=== PATIENT | female | born 1980 | race Caucasian/White ===

== ENCOUNTER 2018-10-03 21:01 | Inpatient (IN) | payer BC ==
[~2018-10-03] VITALS: Ht 167.6 cm; Wt 117.9 kg
[2018-10-03] MEDS ORDERED: PREVACID 15MG15 M1 PO (21:29)
[2018-10-03] MEDS ORDERED: TOPAMAX 100MG100 M1 PO (21:29)
[2018-10-03] MEDS ORDERED: WELLBUTRIN XL300 M1 PO (21:29)
[2018-10-03] MEDS ORDERED: JUNEL 1.5 MG-31 EACH PO (21:30)
[2018-10-03] MEDS ORDERED: MOBIC 7.5MG7.5 MG PO (21:30)
[2018-10-03 21:51] LABS: BASO # 0.1 (0.0-0.2); BASO % 0.6 % (0.0-2.0); EOS # 0.1 (0.0-0.7); EOS % 1.4 % (0-4.0); GRAN # 5.5 (1.4-6.5); GRAN % 68.6 % (42.2-75.2); HEMATOCRIT 40.5 % (37.0-47.0); HEMOGLOBIN 13.3 g/dl (12.5-16.0); LYMPH # 1.8 (1.2-3.4); LYMPH % 22.6 % (20.0-51.0); MEAN CELL VOLUME 88 fl (80.0-100.0); MEAN CORPUSCULAR HEMOGLOBIN 29 pg (27.0-31.0); MEAN CORPUSCULAR HGB CONC 33 g/dl (33.0-37.0); MEAN PLATELET VOLUME 9.8 fl (7.4-10.4); MONO # 0.5 (0.1-0.6); MONO % 6.6 % (1.7-9.3); PLATELET COUNT 382 K/mm3 (130-400); RED BLOOD COUNT 4.62 M/mm3 (4.10-5.30); REDCELL DISTRIBUTION WIDTH-CV 12.6 % (11.5-14.5)
[2018-10-03 22:03] LABS: ALANINE AMINOTRANSFERASE 14 U/L (9-52); ALBUMIN 4.5 gm/dL (3.5-5.0); ALKALINE PHOSPHATASE 100 U/L (50-136); ANION GAP 13 mmol/L (7-16); AST,SGOT 20 U/L (15-37); BILIRUBIN,TOTAL 0.3 mg/dL (0.0-1.0); BLOOD UREA NITROGEN 18 mg/dL (7-17); CALCIUM 9.3 mg/dL (8.4-10.2); CARBON DIOXIDE 19 mmol/L (22-30); CHLORIDE 109 mmol/L (98-107); CREATININE, serum 1.07 (0.52-1.25); GLUCOSE 120 mg/dL (74-106); LIPASE 156 U/L (23-300); POTASSIUM 3.8 mmol/L (3.4-5.0); SODIUM 141 mmol/L (137-145); TOTAL PROTEIN 8.2 gm/dL (6.4-8.2)
[2018-10-03 22:14] LABS: C-REACTIVE PROTEIN 16.8 mg/dL (0.0-0.9); TROPONIN-I < 0.012 ng/mL (0.000-0.035)
[2018-10-03 23:10] LABS: INR 1.1 (0.8-3.0); PROTHROMBIN TIME 12.6 SECONDS (9.7-12.8)
[2018-10-03 23:13] LABS: PARTIAL THROMBOPLASTIN TIME 32.9 SECONDS (26.0-37.0)
[2018-10-04] VITALS (1133 sets, daily range): BP systolic 108–155; BP diastolic 70–88; PULSE 64–105; TEMP 97.7–98.4; O2SAT 89–100
--- NOTE | 2018-10-04 00:09 | NUR ---
RECEIVED REPORT FROM MITZY HICKEY.
[2018-10-04 00:15] LABS: COLLECTION METHOD CLEAN CATCH
--- NOTE | 2018-10-04 00:20 | NUR ---
PT ARRIVED IN UNIT, AMBULATED TO BED FROM STRETCHER. PT ALERT AND ORIENTED X4.
[2018-10-04 00:26] LABS: MUCOUS Present /lpf; PH 6 (5-8); SQUAMOUS EPITHELIAL 0-2 /hpf; URINE APPEARANCE Clear; URINE BACTERIA Many /hpf; URINE BILIRUBIN Negative (NEGATIVE); URINE BLOOD Negative (NEGATIVE); URINE COLOR Yellow; URINE GLUCOSE Negative (NEGATIVE); URINE KETONE Trace (NEGATIVE); URINE LEUKOCYTE ESTERASE Negative (NEGATIVE); URINE NITRATE Positive (NEGATIVE); URINE PROTEIN(semi-quant) Negative (NEGATIVE)
[2018-10-04] MEDS ORDERED: PREVACID 30MG30 M1 PO (01:04)
[2018-10-04] MEDS ORDERED: ADIPEX-P37.5 MG PO (01:06)
[2018-10-04] MEDS ORDERED: TOPAMAX50 MG PO (01:29)
[2018-10-04] MEDS ORDERED: TOPAMAX 100MG100 M1 PO (01:34)
--- NOTE | 2018-10-04 02:06 | NUR ---
PT ALERT AND ORIENTED X 4, ON ROOM AIR, DENIES PAIN OR SOB AT THIS TIME. PT ORIENTED TO ROOM, HOSPITAL PPOLICY AND USE OF CALL LIGHT. PT VERBALIZED UNDERSTANDING. PT'S MEDICATION SENT HOME WITH FRIEND MARY. PT REFUSED TO HAVE HER BELONGINGS/PURSE TAKEN TO [facility], MONEY COUNTED WITH MITZY PHAN. PT'S LEFT LOWER LEG SLIGHTLY SWOLLEN THAN THE RIGHT BUT LOOKS NORMAL FOR PT. PLAN OF CARE DISCUSSED WITH PT, VERBALIZED UNDERSTANDING.
--- NOTE | 2018-10-04 08:30 | NUR ---
Pt c/o stabbing pain to right flank 5/10 and constant. Pt also c/o SOB. Pt says left leg was swollen in the past week, but left leg does not appear swollen at current time.
--- NOTE | 2018-10-04 16:23 | NUR ---
Plan to return home, lives alone but has friend Lina as support . Patient's pcp is Bere Yuan, patient uses [facility] ([facility]) for meds. Patient reprots that her friend will transport her home and that she does not have a DPOA or uses any HHS. Patient reports that she is still concerned with having spasms in her back and that is what brought her to the HOSp. Pt report the use of a nebulizer as needed. Nothing follows.
--- NOTE | 2018-10-04 17:00 | NUR ---
PT TO ROOM 352 ON MEDICAL FLOOR VIA WC. PT BELONGSINGS TAKEN WITH PT TO ROOM. CHART IN RACK AT NURSES STATION. MITZY BECKER NOTIFIED PT IN ROOM.
--- NOTE | 2018-10-04 19:40 | NUR ---
pt trasnferred to room 308 via wheelchair. all belongings with pt. report given to nurse Cassie at 1930.
--- NOTE | 2018-10-04 19:45 | NUR ---
Pt arrived to room 308, transferred per wheelchair by ICU staff. Pt awake, a&o, cooperative c cares. C/o continued SOB et back "spasm"; will provide PRN pain med c HS meds per pt req. Pt denies any other c/o. Pt oriented to room, unit policies et current POC. Questions invited et answered, pt verbalizes understanding. IV patent. Tele in place. Pt denies further needs. Call light in reach, will monitor.
[2018-10-05 04:11] VITALS: BP 126/57; PULSE 87; TEMP 98.1
[2018-10-05 05:58] LABS: BASO % 0.6 % (0.0-2.0); EOS # 0.1 (0.0-0.7); EOS % 2.2 % (0-4.0); GRAN # 2.7 (1.4-6.5); LYMPH # 1.4 (1.2-3.4); LYMPH % 30.8 % (20.0-51.0); MEAN CELL VOLUME 90 fl (80.0-100.0); MEAN CORPUSCULAR HGB CONC 32 g/dl (33.0-37.0); MEAN PLATELET VOLUME 10.2 fl (7.4-10.4); MONO # 0.4 (0.1-0.6); MONO % 8.2 % (1.7-9.3); RED BLOOD COUNT 3.71 M/mm3 (4.10-5.30); REDCELL DISTRIBUTION WIDTH-CV 12.7 % (11.5-14.5)
[2018-10-05 06:02] LABS: HEMOGLOBIN 10.5 g/dl (12.5-16.0); MEAN CORPUSCULAR HEMOGLOBIN 28 pg (27.0-31.0)
[2018-10-05 06:03] LABS: HEMATOCRIT 33.2 % (37.0-47.0); PLATELET COUNT 274 K/mm3 (130-400)
[2018-10-05 06:09] LABS: CALCIUM 8.3 mg/dL (8.4-10.2); CREATININE, serum 0.79 (0.52-1.25)
[2018-10-05 07:35] VITALS: BP 138/84; PULSE 81; TEMP 97.8
--- NOTE | 2018-10-05 08:53 | NUR ---
Pt assessment complete. Pt is laying in bed upon entry, she arouses to voice. She is A/O x3. Her breathing is even and unlabored on RA. Pt reports more SOB on exertion than normal but improvement from yesterday. She currently reports intermittent pain to R flank. Medications administered per MAR. Pt denies N/V. POC discussed with patient who verbalizes understanding. IVF infusing into LFA, no needs at this time. Call light within reach.
[2018-10-05] MEDS ORDERED: BACTRIM DS 8001 TAB PO (11:00)
[2018-10-05] MEDS ORDERED: ELIQUIS 5MG PO (11:02)
[2018-10-05] MEDS ORDERED: ROBAXIN 50500 MG/TAB PO (11:03)
[2018-10-05] MEDS ORDERED: NORCO 325 MG-51 TAB PO (11:08)
--- NOTE | 2018-10-05 12:07 | NUR ---
Discharge paperwork and instructions reviewed with patient. All questions answered at this time. IV to LFA dc'd catheter tip intact. Pt wheeled out of facility at this time.
[2018-10-08 03:41] LABS: ANTI-THROMBIN III SEE PCI FOR RESULTS; LUPUS ANTICOAGULANT INR SEE PCI FOR RESULTS; LUPUS ANTICOAGULANT PT SEE PCI FOR RESULTS; PROTEIN C ACTIVITY SEE PCI FOR RESULTS
== END 2018-10-05 12:07 | disposition home or self-care (01) | DRG 176 ==
LOC: COL.ER 21:01 → MEDICAL 23:40 → ICU 23:40 → MEDICAL 10-04 19:45
PROVIDERS: Emergency Medicine; Nurse Practitioner Family; ADMIT Internal Medicine
DX: I26.99 Other pulmonary embolism without acute cor pulmonale (principal); N39.0 Urinary tract infection, site not specified; J45.909 Unspecified asthma, uncomplicated; F32.9 Major depressive disorder, single episode, unspecified; K21.9 Gastro-esophageal reflux disease without esophagitis; G43.909 Migraine, unspecified, not intractable, without status migrainosus; F17.290 Nicotine dependence, other tobacco product, uncomplicated; M62.838 Other muscle spasm; Z88.9 Allergy status to unspecified drugs, medicaments and biological substances
CPT/HCPCS: 99222-AI; 99239; J1650; J2060; J7030; Q9967

== ENCOUNTER → 2019-07-15 | Outpatient (CLI) | payer BC ==
[~2019-07-15] MED LIST: ADIPEX-P37.5 MG PO; BACTRIM DS 8001 TAB PO; ELIQUIS 5MG PO; JUNEL 1.5 MG-31 EACH PO; MOBIC 7.5MG7.5 MG PO; NORCO 325 MG-51 TAB PO; PREVACID 15MG15 M1 PO; PREVACID 30MG30 M1 PO; ROBAXIN 50500 MG/TAB PO; TOPAMAX 100MG100 M1 PO; TOPAMAX50 MG PO; WELLBUTRIN XL300 M1 PO
== END ==
LOC: MC.RAD 16:20
DX: Z12.31 Encounter for screening mammogram for malignant neoplasm of breast (principal)